=== PATIENT | female | born 1970 | race Caucasian/White ===

== ENCOUNTER 2017-04-19 19:27 | Emergency (ER) | payer MEDICAID ==
[~2017-04-19] VITALS: Ht 162.6 cm; Wt 63.5 kg
[2017-04-19 19:41] VITALS: BP 125/78
== END 2017-04-19 20:00 | disposition left against medical advice (07) ==
LOC: ER 19:27
DX: M79.604 Pain in right leg (principal); Z53.21 Procedure and treatment not carried out due to patient leaving prior to being seen by health care provider

== ENCOUNTER 2022-12-23 20:12 | Emergency (ER) | payer MEDICAID ==
[~2022-12-23] VITALS: Ht 167.6 cm; Wt 55.0 kg
[2022-12-23 23:05] LABS: Urine Bacteria NONE SEEN /hpf (None Seen); Urine Blood Negative /uL (Negative); Urine Specific Gravity 1.007 (1.001-1.035); Urine WBC 1 /hpf (0 - 5)
[2022-12-23 23:19] LABS: Alcohol, Urine < 3.0 mg/dL (0-10); Amphetamine Screen, Urine POSITIVE (NEGATIVE); Barbiturate Scree,Urine NEGATIVE (NEGATIVE); Benzodiazephine Screen, Urine NEGATIVE (NEGATIVE); Cannabinoid Screen, Urine NEGATIVE (NEGATIVE); Cocaine Screen, Urine NEGATIVE (NEGATIVE)
[2022-12-23 23:27] LABS: Opiate Scree,Urine NEGATIVE (NEGATIVE); Phencyclidine Screen, Urine NEGATIVE (NEGATIVE)
[2022-12-23 23:30] LABS: Basophils # (auto) 0 10 ^3/uL (0-0.2); Basophils % (auto) 0.3 % (0.0-2.0); Eosinophils # (auto) 0 10 ^3/uL (0-0.8); Hematocrit 41.1 % (36.0-46.0); Hemoglobin 13.7 g/dL (12.2-16.2); Lymphocytes # (auto) 1.1 10 ^3/uL (0.4-5.4); Lymphocytes % (auto) 6.8 % (10.0-50.0); Mean Corpuscular Hemoglobin 30.6 pg (28.0-32.0); Mean Corpuscular Hgb Conc. 33.3 g/dL (32.0-36.0); Mean Corpuscular Volume 91.9 fL (80.0-100.0); Monocytes # (auto) 0.7 10 ^3/uL (0-1.3); Monocytes % (auto) 4.2 % (0.0-12.0); Neutrophils # (auto) 13.8 10 ^3/uL (1.6-8.6); Neutrophils % (auto) 88.7 % (37.0-80.0); Red Blood Cells 4.47 10^6/uL (4.0-5.20); Red Cell Distribution Width 13.5 % (11.8-14.3); White Blood Cell 15.6 10^3/uL (4.4-10.8)
[2022-12-23] MEDS ORDERED: SODIUM CHLORIDE 0.9% 1,000 ML IV ONE (23:30)
[2022-12-23 23:38] LABS: Acetaminophen < 2.0 ug/mL (10-30); Alanine Aminotransferase 22 U/L (13-56); Albumin 3.7 g/dL (3.4-5.0); Anion Gap 8 (5-15); Aspartate Aminotransferase 29 U/L (15-37); Blood Urea Nitrogen 11 mg/dL (7-18); Calcium 8.7 mg/dL (8.5-10.1); Carbon Dioxide 28 mmol/L (21-32); Chloride 101 mmol/L (98-107); GFR African American 83 mL/min; GFR Non-African American 69 mL/min; Glucose 85 mg/dL (74-106); Magnesium 1.9 mg/dL (1.6-2.6); Potassium 3.6 mmol/L (3.5-5.1); Salicylate < 1.7 mg/dL (2.8-20.0); Sodium 137 mmol/L (136-145)
[2022-12-23 23:43] LABS: Alkaline Phosphatase 86 U/L (45-117); Bilirubin, Total 0.6 mg/dL (0.2-1.0); Blood Alcohol < 3.0 mg/dL (0-5); Total Protein 7.1 g/dL (6.4-8.2)
[2022-12-24 08:00] VITALS: BP 123/71
[2022-12-24] MEDS ORDERED: CEPH-510 PO (08:17)
[2022-12-24] MEDS ORDERED: cefTRIAXone SOD 1,000 MG VL IM ONE (08:30)
== END 2022-12-24 09:12 | disposition home or self-care (01) ==
LOC: ER 20:12 → EDBD 20:12 → ER 12-24 09:05
DX: T40.412A Poisoning by fentanyl or fentanyl analogs, intentional self-harm, initial encounter (principal); F15.10 Other stimulant abuse, uncomplicated; R41.82 Altered mental status, unspecified; Z88.6 Allergy status to analgesic agent; Z79.899 Other long term (current) drug therapy
CPT/HCPCS: 36415; 80053; 80307; 80320; 80329; 81001; 83735; 85025; 96360; 96372; 99283; J0696; J7030